=== PATIENT | female | born 1985 | race African-American/Black ===

== ENCOUNTER 2022-07-10 16:23 | Emergency (ER) | payer OTHER ==
[2022-07-10 16:31] VITALS: BP 105/68; PULSE 88; TEMP 97.5; BMI 19.2
[2022-07-10 17:13] VITALS: RESP 16
[2022-07-10] MEDS ORDERED: DIPHTH,PERTUSS(ACELL),TET 0.5 ML DISP.SYRIN IM ONE ×2 (20:19)
== END 2022-07-10 21:36 | disposition short-term general hospital (02) ==
LOC: JER 16:23 → JERFT 16:23
PROC: 3E0234Z Introduction of Serum, Toxoid and Vaccine into Muscle, Percutaneous Approach (ICD-10-PCS; principal; 2022-07-10)
DX: S05.91XA Unspecified injury of right eye and orbit, initial encounter (principal); Y04.0XXA Assault by unarmed brawl or fight, initial encounter
CPT/HCPCS: 70450-TC; 70486-TC; 71046-TC-FY; 72125-TC; 84703; 90471; 90715; 99285-25

== ENCOUNTER 2024-11-19 09:19 | Emergency (ER) | payer OTHER ==
[2024-11-19 09:28] VITALS: BP 109/76; PULSE 89; RESP 18; TEMP 97.7; BMI 18.1
[2024-11-19 12:27] LABS: HIV INTERPRETATION NEGATIVE (NEGATIVE)
== END 2024-11-19 11:41 | disposition home or self-care (01) ==
LOC: JER 09:19 → JERFT 09:19
DX: S46.212A Strain of muscle, fascia and tendon of other parts of biceps, left arm, initial encounter (principal); X58.XXXA Exposure to other specified factors, initial encounter
CPT/HCPCS: 36415; 73060-TC-LT-FY; 86803; 87389; 99284-25